=== PATIENT | female | born 1985 | race Caucasian/White ===

== ENCOUNTER 2025-03-31 10:59 | Outpatient (CLI) | payer BC, SELFPAY ==
--- NOTE | 2025-03-31 11:07 | MM_ITS ---
WS: [id number] SCREENING DIGITAL BREAST TOMOSYNTHESIS MAMMOGRAM WITH CAD HISTORY: SCREENING COMPARISON: None available. Bilateral CC and MLO with tomosynthesis and synthetic mammography submitted. Computer aided detection analyzed. Breast composition: The breasts are heterogeneously dense, which may obscure small masses. Partially obscured slightly nodular mass in the central RIGHT breast measures 12 x 14 x 12 mm. This mass is at a middle depth and retroareolar. May be slightly above the nipple line near 12:00. LEFT breast is negative. MM/MM [facility] tomosynthesis [id number] IMPRESSION: BI-RADS: 0 - Incomplete: Need additional imaging evaluation FOLLOW UP: Need Additional Imaging Recommendation: RIGHT breast ultrasound, limited.
== END 2025-03-31 11:00 | disposition home or self-care (01) ==
PROVIDERS: PCP Family Medicine; Visit Provider Family Medicine
DX: Z12.31 Encounter for screening mammogram for malignant neoplasm of breast (principal); R92.333 Mammographic heterogeneous density, bilateral breasts; N63.15 Unspecified lump in the right breast, overlapping quadrants
CPT/HCPCS: 77063; 77067

== ENCOUNTER 2025-04-20 09:18 | Outpatient (CLI) | payer BC, SELFPAY ==
--- NOTE | 2025-04-20 09:27 | US_ITS ---
WS: [id number] ULTRASOUND RIGHT BREAST, limited HISTORY: MASS OF R BREAST COMPARISON: Screening mammogram 03/31/2025 TECHNIQUE: 2-D and Doppler. Ultrasound directed to 12:00. At 12:00 there is a well-circumscribed cyst measuring 1.3 x 0.6 x 1.2 cm. This corresponds to the abnormality on the mammogram in both size and location. There are a few additional smaller cysts also noted at 12:00. No solid mass. No areas of shadowing. US/US breast RT limited* [id number] IMPRESSION: BI-RADS: 2- Benign FOLLOW-UP: 1 Year Follow-up Return to annual screening mammography. Benign cyst RIGHT breast 12:00.
== END 2025-04-20 09:19 | disposition home or self-care (01) ==
PROVIDERS: PCP Family Medicine; Visit Provider Family Medicine
DX: N60.01 Solitary cyst of right breast (principal)
CPT/HCPCS: 76642